=== PATIENT | female | born 1955 | race African-American/Black ===

== ENCOUNTER 2021-06-11 10:40 | Inpatient (IN) | payer OTHER ==
[~2021-06-11] VITALS: Ht 170.2 cm; Wt 49.0 kg
[2021-06-11 11:05] LABS: BASOPHILS % 0.2 % (0.0-1.0); EOSINOPHILS # (AUTO) 0.1 (0.0-0.4); EOSINOPHILS % 0.6 % (0.0-6.0); HEMOGLOBIN 12.8 g/dL (12.0-16.0); LYMPHOCYTES # (AUTO) 1.7 (1.0-3.2); LYMPHOCYTES % 16.7 % (18.0-39.1); MEAN CORPUSCULAR HEMOGLOBIN 33.4 pg (28-32); MEAN CORPUSCULAR HGB CONC 32.8 g/dL (31-35); MEAN CORPUSCULAR VOLUME 101.8 fL (81-99); MONOCYTES # (AUTO) 1.3 (0.2-0.8); MONOCYTES % 12.3 % (4.4-11.3); NEUTROPHILS # (AUTO) 7.1 (2.1-6.9); NEUTROPHILS % 69.9 % (38.7-80.0); PLATELET COUNT 213 x10e3/uL (140-360); RED BLOOD COUNT 3.83 x10e6/uL (3.6-5.1); RED CELL DISTRIBUTION WIDTH 12.3 % (11.7-14.4)
[2021-06-11 11:25] LABS: ALBUMIN 3.7 g/dL (3.5-5.0); ALBUMIN/GLOBULIN RATIO 0.7 (0.8-2.0); ANION GAP 13.2 mmol/L (8-16); CALCIUM 10.1 mg/dL (8.4-10.2); CREATININE, SERUM 1.11 mg/dL (0.57-1.11); POTASSIUM 4.2 mmol/L (3.5-5.1)
[2021-06-11 12:33] LABS: BODY FLUID APPEARANCE TURBID; BODY FLUID COLOR YELLOW; BODY FLUID TYPE SYNOVIAL; WBC,BODY FLUID 53625 cells/uL
[2021-06-11 12:34] LABS: RBC,BODY FLUID < 200 cells/uL
[2021-06-11 12:59] LABS: LYMPHOCYTES,BODY FLUID 6 %; MONO/MACROPHG,BODY FLUID 10 %; NEUTROPHILS,BODY FLUID 84 %
[2021-06-11] MEDS ORDERED: BENZONATATE 100 MG CAP PO PRN ×2 (13:00→21:30)
[2021-06-11] MEDS ORDERED: ALBUTEROL/IPRATROPIUM 3 ML NEB NEB PRN ×2 (13:00→21:30)
[2021-06-11] MEDS ORDERED: ONDANSETRON HCL INJ 2MG/ML 2ML 2 MG/ML VIAL IV PRN ×4 (13:00→21:30)
[2021-06-11] MEDS ORDERED: POTASSIUM CHLORIDE 20 MEQ TAB CR PO PRN ×2 (13:00→21:30)
[2021-06-11] MEDS ORDERED: MELATONIN 5 MG TABLET PO PRN ×2 (13:00→21:30)
[2021-06-11] MEDS ORDERED: DEXTROSE 50% SYRINGE 50 ML IV PRN ×2 (13:00→21:30)
[2021-06-11] MEDS ORDERED: LIDOCAINE 4% PATCH TP PRN ×2 (13:00→21:30)
[2021-06-11] MEDS ORDERED: SIMETHICONE 80 MG CHEW PO PRN ×2 (13:00→21:30)
[2021-06-11] MEDS ORDERED: HYDRALAZINE HCL 20 MG/ML VIAL IV PRN ×2 (13:00→21:30)
[2021-06-11] MEDS ORDERED: DIPHENHYDRAMINE HCL 25 MG CAP PO PRN ×2 (13:00→21:30)
[2021-06-11] MEDS ORDERED: DOCUSATE SODIUM 100 MG CAP PO PRN ×2 (13:00→21:30)
[2021-06-11] MEDS ORDERED: ACETAMINOPHEN 325 MG TAB PO PRN ×2 (13:00→21:30)
[2021-06-11 13:03] LABS: INR 1.01; PROTHROMBIN TIME 14.2 seconds (11.9-14.5)
[2021-06-11 13:04] LABS: PARTIAL THROMBOPLASTIN TIME 37.3 seconds (23.8-35.5)
[2021-06-11] MEDS ORDERED: SODIUM CHLORIDE 0.9% 1000ML 1,000 ML IV SCH ×2 (13:15→18:30)
[2021-06-11] MEDS ORDERED: Morphine 2mg Syringe 2 MG/ML SYR IV PRN ×2 (13:15→21:30)
[2021-06-11] MEDS ORDERED: MEROPENEM 1 GM in SODIUM CHLORIDE 0.9% 100 ML IV SCH (13:30)
[2021-06-11 13:37] LABS: CREATINE KINASE 66 IU/L (29-168)
[2021-06-11] MEDS ORDERED: Vancomycin IV 1 GM in SODIUM CHLORIDE 0.9% 250ML 250 ML IV ONE (14:00)
[2021-06-11] MEDS ORDERED: PROPOFOL IV EMULSION 10 MG/ML 20 ML VIAL ONE (14:04)
[2021-06-11] MEDS ORDERED: ONDANSETRON HCL INJ 2MG/ML 2ML 2 MG/ML VIAL ONE (14:04)
[2021-06-11] MEDS ORDERED: POVIDONE IODINE 0.05% 0.05 % ML PO ONE (14:04)
[2021-06-11] MEDS ORDERED: SEVOFLURANE INHAL SOLN 250 ML PEN BTL ONE (14:04)
[2021-06-11] MEDS ORDERED: MIDAZOLAM HCL 2 MG/2 ML VIAL ONE (14:04)
[2021-06-11] MEDS ORDERED: LIDOCAINE HCL 2% LOCAL INJ 5 ML SDV VIAL INJ ONE (14:04)
[2021-06-11] MEDS ORDERED: FENTANYL CITRATE/PF 100MCG/2 ML INJ ONE (14:04)
[2021-06-11] MEDS ORDERED: BUPIVACAINE 0.25% 30ML SDV ONE (14:16)
[2021-06-11] MEDS ORDERED: Vancomycin IV 1 GM VIAL ONE (14:16)
[2021-06-11] MEDS ORDERED: LABETALOL HCL 20 ML ONE (16:50)
[2021-06-11] MEDS ORDERED: MEPERIDINE HCL INJ 25 MG/ML VIAL ONE (16:57)
[2021-06-11] MEDS ORDERED: ENOXAPARIN SOD INJ 40 MG/0.4 ML SYR SC SCH (17:00)
[2021-06-11 18:14] VITALS: BP 143/93
[2021-06-11] MEDS ORDERED: DILANTIN50 MG PO (19:17)
[2021-06-11 19:21] VITALS: BP 143/93
[2021-06-11 19:46] VITALS: BP 129/74
[2021-06-11] MEDS ORDERED: AMLODIPINE BESY10 MG PO (20:16)
[2021-06-11] MEDS ORDERED: METOPROLOL SUCC50 MG PO (20:17)
[2021-06-11] MEDS ORDERED: HYDRALAZINE HCL50 MG PO ×2 (20:17→21:50)
[2021-06-11] MEDS ORDERED: LISINOPRIL-HCT1 EACH PO (20:18)
[2021-06-11 20:54] VITALS: BP 129/74
[2021-06-11] MEDS ORDERED: PHENYTOIN SODI100 MG PO (21:29)
[2021-06-11] MEDS ORDERED: PHENYTOIN 50 MG TAB PO SCH (22:00)
[2021-06-11] MEDS ORDERED: PHENYTOIN SODIUM EXT REL 100 MG CAP PO ONE (22:15)
[2021-06-11 23:52] VITALS: BP 120/66
[2021-06-12] VITALS (7 sets, daily range): BP systolic 81–125; BP diastolic 56–75
[2021-06-12] MEDS ORDERED: SODIUM CHLORIDE 0.9% 250ML 250 ML ONE (00:51)
[2021-06-12] MEDS ORDERED: MEROPENEM 1 GM in SODIUM CHLORIDE 0.9% 100 ML IV SCH ×2 (01:00→09:00)
[2021-06-12] MEDS: HYDROCODONE/APAP 5MG-325MG TAB PO PRN ×2 (01:50→12:44)
[2021-06-12 05:00] LABS: BASOPHILS % 0.4 % (0.0-1.0); EOSINOPHILS # (AUTO) 0.1 (0.0-0.4); EOSINOPHILS % 1.4 % (0.0-6.0); HEMATOCRIT 33.9 % (34.2-44.1); LYMPHOCYTES # (AUTO) 1.9 (1.0-3.2); LYMPHOCYTES % 18.8 % (18.0-39.1); MEAN CORPUSCULAR HEMOGLOBIN 33.2 pg (28-32); MEAN CORPUSCULAR HGB CONC 32.4 g/dL (31-35); MEAN CORPUSCULAR VOLUME 102.4 fL (81-99); MONOCYTES # (AUTO) 1.2 (0.2-0.8); MONOCYTES % 12.4 % (4.4-11.3); NEUTROPHILS # (AUTO) 6.7 (2.1-6.9); NEUTROPHILS % 66.6 % (38.7-80.0); PLATELET COUNT 162 x10e3/uL (140-360); RED BLOOD COUNT 3.31 x10e6/uL (3.6-5.1); RED CELL DISTRIBUTION WIDTH 12.1 % (11.7-14.4)
[2021-06-12 05:36] LABS: ALBUMIN 2.9 g/dL (3.5-5.0); ALBUMIN/GLOBULIN RATIO 0.6 (0.8-2.0); ANION GAP 12.2 mmol/L (8-16); CALCIUM 8.5 mg/dL (8.4-10.2); CREATININE, SERUM 1.11 mg/dL (0.57-1.11); POTASSIUM 4.2 mmol/L (3.5-5.1)
[2021-06-12 05:55] LABS: MAGNESIUM 1.7 MG/DL (1.3-2.1); PHOSPHORUS 3.7 MG/DL (2.3-4.7)
[2021-06-12] MEDS ORDERED: LISINOPRIL-HCT1 EACH PO (06:20)
[2021-06-12] MEDS ORDERED: PANTOPRAZOLE SOD 40 MG TABEC PO SCH (07:30)
[2021-06-12] MEDS: HYDRALAZINE HCL 25 MG TAB PO SCH ×2 (09:00→17:03)
[2021-06-12] MEDS ORDERED: LISINOPRIL HCTZ PO SCH (09:00)
[2021-06-12] MEDS ORDERED: HYDROCHLOROTHIAZIDE 25 MG TAB PO SCH (09:00)
[2021-06-12] MEDS ORDERED: PHENYTOIN SODIUM EXT REL 100 MG CAP PO SCH (09:00)
[2021-06-12] MEDS: LISINOPRIL 20 MG TAB PO SCH ×2 (09:06→19:56)
[2021-06-12] MEDS: PANTOPRAZOLE SOD 40 MG TABEC PO SCH (09:06)
[2021-06-12] MEDS: AMLODIPINE BESYLATE 10 MG TAB PO SCH (09:06)
[2021-06-12] MEDS: PHENYTOIN SODIUM EXT REL 100 MG CAP PO SCH ×2 (09:06→17:03)
[2021-06-12] MEDS: METOPROLOL SUCCINATE 50 MG TAB XL PO SCH (09:07)
[2021-06-12] MEDS ORDERED: Morphine 2mg Syringe 2 MG/ML SYR IV PRN (13:00)
[2021-06-12] MEDS ORDERED: HYDROCODONE/APAP 7.5MG-325MG 1 EA TAB PO PRN (13:00)
[2021-06-12] MEDS: KETOROLAC TROMETHAMINE 30 MG/ML VIAL IV SCH ×3 (13:32→23:54)
[2021-06-12] MEDS: CEFTRIAXONE 2 GM in SODIUM CHLORIDE 0.9% 100 ML IV SCH (13:32)
[2021-06-12] MEDS: ENOXAPARIN SOD INJ 40 MG/0.4 ML SYR SC SCH (17:03)
[2021-06-13] VITALS (7 sets, daily range): BP systolic 90–100; BP diastolic 56–65
[2021-06-13] MEDS: KETOROLAC TROMETHAMINE 30 MG/ML VIAL IV SCH ×3 (05:39→17:37)
[2021-06-13 05:42] LABS: BASOPHILS % 0.2 % (0.0-1.0); EOSINOPHILS # (AUTO) 0.2 (0.0-0.4); EOSINOPHILS % 1.8 % (0.0-6.0); HEMATOCRIT 31.7 % (34.2-44.1); HEMOGLOBIN 10.2 g/dL (12.0-16.0); LYMPHOCYTES # (AUTO) 1.3 (1.0-3.2); LYMPHOCYTES % 14.6 % (18.0-39.1); MEAN CORPUSCULAR HEMOGLOBIN 32.9 pg (28-32); MEAN CORPUSCULAR HGB CONC 32.2 g/dL (31-35); MEAN CORPUSCULAR VOLUME 102.3 fL (81-99); NEUTROPHILS # (AUTO) 6.4 (2.1-6.9); PLATELET COUNT 142 x10e3/uL (140-360)
[2021-06-13 06:10] LABS: CALCIUM 8.3 mg/dL (8.4-10.2); CREATININE, SERUM 1.32 mg/dL (0.57-1.11)
[2021-06-13] MEDS: HYDRALAZINE HCL 25 MG TAB PO SCH ×2 (08:07→17:00)
[2021-06-13] MEDS: LISINOPRIL 20 MG TAB PO SCH (08:07)
[2021-06-13] MEDS: METOPROLOL SUCCINATE 50 MG TAB XL PO SCH (08:07)
[2021-06-13] MEDS: PANTOPRAZOLE SOD 40 MG TABEC PO SCH (09:45)
[2021-06-13] MEDS: PHENYTOIN SODIUM EXT REL 100 MG CAP PO SCH ×2 (09:45→17:33)
[2021-06-13] MEDS: AMLODIPINE BESYLATE 10 MG TAB PO SCH (09:46)
[2021-06-13] MEDS ORDERED: SODIUM CHLORIDE 0.9% 500ML 500 ML IV ONE (14:30)
[2021-06-13] MEDS: CEFTRIAXONE 2 GM in SODIUM CHLORIDE 0.9% 100 ML IV SCH (14:59)
[2021-06-13] MEDS: ENOXAPARIN SOD INJ 40 MG/0.4 ML SYR SC SCH (17:33)
[2021-06-14] VITALS (8 sets, daily range): BP systolic 103–130; BP diastolic 68–84
[2021-06-14] MEDS: PANTOPRAZOLE SOD 40 MG TABEC PO SCH (07:30)
[2021-06-14] MEDS: METOPROLOL SUCCINATE 50 MG TAB XL PO SCH (09:00)
[2021-06-14] MEDS: HYDRALAZINE HCL 25 MG TAB PO SCH ×2 (09:00→17:10)
[2021-06-14] MEDS: PHENYTOIN SODIUM EXT REL 100 MG CAP PO SCH ×2 (09:28→17:09)
[2021-06-14] MEDS ORDERED: ONDANSETRON HCL 4 MG ORAL DISINTEGRATING TAB PO PRN (13:00)
[2021-06-14] MEDS: CEFTRIAXONE 2 GM in SODIUM CHLORIDE 0.9% 100 ML IV SCH (14:00)
[2021-06-14] MEDS: ENOXAPARIN SOD INJ 40 MG/0.4 ML SYR SC SCH (17:09)
[2021-06-15 04:59] VITALS: BP 133/85
[2021-06-15 07:46] VITALS: BP 129/77
[2021-06-15 08:10] VITALS: BP 129/77
[2021-06-15] MEDS: PHENYTOIN SODIUM EXT REL 100 MG CAP PO SCH (08:52)
[2021-06-15] MEDS: PANTOPRAZOLE SOD 40 MG TABEC PO SCH (08:52)
[2021-06-15] MEDS: HYDRALAZINE HCL 25 MG TAB PO SCH (08:52)
[2021-06-15] MEDS: METOPROLOL SUCCINATE 50 MG TAB XL PO SCH (08:53)
[2021-06-15 11:45] VITALS: BP 135/96
[2021-06-15] MEDS: CEFTRIAXONE 2 GM in SODIUM CHLORIDE 0.9% 100 ML IV SCH (13:20)
== END 2021-06-15 15:37 | disposition home or self-care (01) | DRG 857 ==
LOC: ER 13:03 → PACU V 13:12 → ERHOLD 13:12 → UNDOADMIN 13:12 → MED/SURG2 17:39
PROVIDERS: ADMIT Internal Medicine; ATTEND Internal Medicine
PROC: 0S9C4ZZ Drainage of Right Knee Joint, Percutaneous Endoscopic Approach (ICD-10-PCS; 2021-06-11)
PROC: 02HV33Z Insertion of Infusion Device into Superior Vena Cava, Percutaneous Approach (ICD-10-PCS; 2021-06-11)
PROC: 0SBC4ZZ Excision of Right Knee Joint, Percutaneous Endoscopic Approach (ICD-10-PCS; principal; 2021-06-11 15:15)
DX: T80.29XA Infection following other infusion, transfusion and therapeutic injection, initial encounter (principal); M00.9 Pyogenic arthritis, unspecified; I10 Essential (primary) hypertension; G40.909 Epilepsy, unspecified, not intractable, without status epilepticus; M22.41 Chondromalacia patellae, right knee; Z20.822 Contact with and (suspected) exposure to COVID-19; Z88.1 Allergy status to other antibiotic agents; Z79.899 Other long term (current) drug therapy; Y84.8 Other medical procedures as the cause of abnormal reaction of the patient, or of later complication, without mention of misadventure at the time of the procedure
CPT/HCPCS: 36415; 36569; 70450; 71045; 74470; 80048; 80053; 82550; 82553; 83605; 83735; 84100; 84484; 85025; 85610; 85651; 85730; 86141; 87040; 87071; 87075; 87086; 87116; 87205; 87206; 89051; 89060; 93306; 94799; 97139; 99284; J0696; J1650; J1885; J2001; J2175; J2185; J2250; J2270; J2405; J3010; J3370; J7040; J7050; U0002

== ENCOUNTER 2021-12-24 07:19 | Observation (INO) | payer OTHER, MEDICARE ==
[2021-12-21 13:30] LABS: BASOPHILS % 0.4 % (0.0-1.0); EOSINOPHILS # (AUTO) 0.3 (0.0-0.4); EOSINOPHILS % 4.1 % (0.0-6.0); HEMATOCRIT 41.1 % (34.2-44.1); HEMOGLOBIN 12.7 g/dL (12.0-16.0); LYMPHOCYTES # (AUTO) 1.8 (1.0-3.2); LYMPHOCYTES % 26.6 % (18.0-39.1); MEAN CORPUSCULAR HEMOGLOBIN 33.7 pg (28-32); MEAN CORPUSCULAR HGB CONC 30.9 g/dL (31-35); MONOCYTES # (AUTO) 0.5 (0.2-0.8); MONOCYTES % 7.3 % (4.4-11.3); NEUTROPHILS # (AUTO) 4.2 (2.1-6.9); NEUTROPHILS % 61.3 % (38.7-80.0); PLATELET COUNT 200 x10e3/uL (140-360); RED BLOOD COUNT 3.77 x10e6/uL (3.6-5.1)
[2021-12-24] VITALS (7 sets, daily range): BP systolic 100–134; BP diastolic 55–81
[~2021-12-24 07:19] MED LIST: AMLODIPINE BESY10 MG PO; CELECOXIB 200 MG CAP ONE; DEXAMETHASONE SOD PHOS 10 MG/1 ML VIAL ONE; DILANTIN50 MG PO; GABAPENTIN 300 MG CAP ONE; HYDRALAZINE HCL50 MG PO; LISINOPRIL-HCT1 EACH PO; LISINOPRIL10 MG PO; METOPROLOL SUCC50 MG PO; PHENYTOIN SODI100 MG PO; SODIUM CHLORIDE 0.9% 500ML 500 ML ONE; TRANEXAMIC ACID 0 ML ONE; Vancomycin IV 1,000 MG ONE
[2021-12-24] MEDS ORDERED: ROPIVACAINE 246.25 MG, EPINEPHRINE HCL 1:1000 1ML 0.5 MG, CLONIDINE HCL 0.08 MG, KETORO... INJ ONE ×5 (07:30)
[2021-12-24] MEDS ORDERED: ONDANSETRON HCL INJ 2MG/ML 2ML 2 MG/ML VIAL IV PRN (08:30)
[2021-12-24] MEDS ORDERED: HYDROCODONE/APAP 5MG-325MG TAB PO PRN (08:30)
[2021-12-24] MEDS ORDERED: ZOLPIDEM TARTRATE 5 MG TAB PO PRN (08:30)
[2021-12-24] MEDS ORDERED: DIPHENHYDRAMINE HCL INJ 50 MG/ML VIAL IV PRN (08:30)
[2021-12-24] MEDS ORDERED: DOCUSATE SODIUM 100 MG CAP PO PRN (08:30)
[2021-12-24] MEDS ORDERED: ASPIRIN 325 MG TAB PO SCH (09:00)
[2021-12-24] MEDS ORDERED: CELECOXIB 100 MG CAP PO SCH (09:00)
[2021-12-24] MEDS: CELECOXIB 100 MG CAP PO SCH ×2 (11:30→17:00)
[2021-12-24] MEDS ORDERED: BUPIVACAINE 0.25% 30ML SDV ONE (13:56)
[2021-12-24] MEDS ORDERED: LIDOCAINE HCL 2% LOCAL INJ 5 ML SDV VIAL INJ ONE (13:56)
[2021-12-24] MEDS ORDERED: POVIDONE IODINE 0.05% 0.05 % ML PO ONE (13:56)
[2021-12-24] MEDS ORDERED: SEVOFLURANE INHAL SOLN 250 ML PEN BTL ONE (13:56)
[2021-12-24] MEDS ORDERED: LIDOCAINE HCL 2% LOCAL 20 ML VIAL ONE (13:56)
[2021-12-24] MEDS ORDERED: ONDANSETRON HCL INJ 2MG/ML 2ML 2 MG/ML VIAL ONE (13:56)
[2021-12-24] MEDS ORDERED: PROPOFOL IV EMULSION 10 MG/ML 20 ML VIAL ONE (13:56)
[2021-12-24] MEDS ORDERED: DEXAMETHASONE SOD PHOS INJ 4 MG/ML SDV ONE (13:56)
[2021-12-24] MEDS: ASPIRIN 325 MG TAB PO SCH (17:00)
[2021-12-24] MEDS: SODIUM CHLORIDE 0.9% 1000ML 1,000 ML IV SCH ×2 (18:00→18:30)
[2021-12-24] MEDS ORDERED: ASPIRIN81 MG PO (18:19)
[2021-12-24] MEDS: PHENYTOIN SODIUM EXT REL 100 MG CAP PO SCH (23:58)
[2021-12-25] VITALS: BP 96/67
[2021-12-25] MEDS: HYDROCODONE/APAP 7.5MG-325MG 1 EA TAB PO PRN ×3 (01:57→18:20)
[2021-12-25 04:00] VITALS: BP 88/53
[2021-12-25 05:43] LABS: HEMATOCRIT 32.8 % (34.2-44.1); HEMOGLOBIN 10.3 g/dL (12.0-16.0)
[2021-12-25] MEDS ORDERED: ACETAMINOPHEN 1000 MG/100 ML IV PRN (08:30)
[2021-12-25] MEDS: ASPIRIN 325 MG TAB PO SCH ×2 (08:31→17:02)
[2021-12-25] MEDS: PHENYTOIN SODIUM EXT REL 100 MG CAP PO SCH ×3 (08:34→17:03)
[2021-12-25] MEDS: CELECOXIB 100 MG CAP PO SCH ×2 (08:36→17:03)
[2021-12-25 08:42] VITALS: BP 102/64
[2021-12-25 08:50] VITALS: BP 102/64
[2021-12-25 12:39] VITALS: BP 111/60
[2021-12-25] MEDS ORDERED: ONDANSETRON HCL 4 MG ORAL DISINTEGRATING TAB PO PRN (12:45)
[2021-12-25 17:02] VITALS: BP 110/71
== END 2021-12-25 18:33 | disposition home health service (06) ==
LOC: OR 07:19 → PACU V 08:24 → MED/SURG 09:49
PROVIDERS: ADMIT Specialist; ATTEND Specialist
DX: M17.12 Unilateral primary osteoarthritis, left knee (principal); M21.062 Valgus deformity, not elsewhere classified, left knee; I10 Essential (primary) hypertension; Z88.1 Allergy status to other antibiotic agents; Z01.812 Encounter for preprocedural laboratory examination; Z20.822 Contact with and (suspected) exposure to COVID-19
CPT/HCPCS: 0223U; 27447; 36415 ×2; 71046; 73560; 85014; 85018; 85025; 86850; 86900; 86920; 94799; 97110 ×2; 97116; 97161; 97530 ×3; C1713 ×2; C1776 ×4; G0378 ×2; J0171; J0690 ×2; J1100 ×2; J1885; J2001 ×2; J2405; J2704; J2795; J3370; J7030; J7040